=== PATIENT | male | born 1985 | race Caucasian/White ===

== ENCOUNTER 2020-01-11 05:56 | Emergency (ER) | payer OTHER ==
[2020-01-11 07:05] LABS: RAPID GROUP A STREP NEGATIVE (NEGATIVE)
== END 2020-01-11 08:10 | disposition home or self-care (01) ==
LOC: EDH 05:56
DX: U07.1 COVID-19 (principal); E11.9 Type 2 diabetes mellitus without complications; I10 Essential (primary) hypertension; E78.00 Pure hypercholesterolemia, unspecified; Z90.49 Acquired absence of other specified parts of digestive tract; Z87.891 Personal history of nicotine dependence
CPT/HCPCS: 71045; 87426; 87804; 87880